=== PATIENT | female | born 1935 | race Caucasian/White ===

== ENCOUNTER 2018-07-03 09:44 | Day surgery (SDC) | payer OTHER ==
--- NOTE | 2018-06-29 11:26 | EKG ---
Test Date: 2018-06-29 Test Time: 11:10:17 Front End Mechanic: KYRIE MEASUREMENT RESULTS: Intervals: Rate: 72 NJ: 150 QRSD: 78 QT: 430 QTc: 470 Amity: P: 68 NJ: 150 QRS: 54 T: 72 INTERPRETIVE STATEMENTS: Normal sinus rhythm Biatrial enlargement Septal infarct, age undetermined Abnormal ECG Compared to ECG 11/12/2016 14:53:43 Myocardial infarct finding now present ST (T wave) deviation no longer present Electronically Signed On 06-29-18 11:25:50 [employer]ODU[employer] CHECKER by Jasson Glass
[2018-06-29 12:23] LABS: Absolute Lymphocytes (CBC) 1.6 K/uL (0.7-4.9); Absolute Monocytes 0.6 K/uL (0.1-1.3); Absolute Neutrophil 4.8 K/uL (1.8-8.0); Basophils % 0.7 % (0-1.3); Eosinophils % 1.2 % (0-4.4); Hematocrit 42.4 % (36.0-45.0); Lymphocytes % 22.3 % (15.3-44.8); MPV 8.9 fL (7.6-11.3); Monocytes % 7.8 % (3.3-12.3)
[2018-06-29 12:26] LABS: Potassium 4.1 mmol/L (3.5-5.1)
--- OUTSIDE RECORDS SUMMARY | 2018-07-03 09:47 | XMS REPORT | Clinical Summary ---
:1935 Author Organization [facility] Address [address] [place] [id number] Care Team Providers Name Role Phone Hussain Aponte MD Primary Care Provider Allergies Active Allergy Reactions Severity Noted Date Comments Codeine 12/25/2015 Medications Medication Sig Dispensed Refills Start Date End Date Status aspirin (ECOTRIN) 81 MG TAKE 1 TABLET BY 0 Active enteric coated tablet MOUTH DAILY calcium citrate-vitamin one by mouth 0 09/27/2014 Active D3 200 mg calcium -250 once daily unit tablet levothyroxine TAKE 1 TABLET BY 0 Active (SYNTHROID) 50 mcg MOUTH DAILY tablet omega-3 fatty acids-fish Take by mouth. 0 Active oil (FISH OIL) 360-1,200 mg capsule Active Problems Problem Noted Date Disorder of breast 12/25/2015 Encounters Date Type Specialty Care Team Description 05/29/2018 Hospital Encounter Radiology Henok, Zo Abnormal mammogram MD Lev 05/29/2018 Hospital Encounter Radiology Henok, Zo Abnormal mammogram MD Lev 05/29/2018 Office Visit Obstetrics and [facility] Well woman exam Gynecology MD Lev (Primary Dx) 04/10/2018 Orders Only Obstetrics and Marion Carrera, Abnormal mammogram Gynecology EP TECHNOLOGIST (Primary Dx) 04/10/2018 Transcribe Orders Access Henok, Zo Mammogram abnormal MD Lev (Primary Dx) 04/10/2018 Telephone Obstetrics and [facility] Gynecology MD Lev after 07/02/2017 Family History Medical History Relation Name Comments Other Father Malignant tumor of lung Relation Name Status Comments Father Mother Social History Tobacco Use Types Packs/Day Years Used Date Never Smoker Smokeless Tobacco: Never Used Alcohol Use Drinks/Week oz/Week Comments No Sex Assigned at Date Recorded Not on file Job Start Date Occupation Industry Not on file Not on file Not on file Travel History Travel Start Travel End No recent travel history available. Last Filed Vital Signs Vital Sign Reading Time Taken Blood Pressure 171/80 05/29/2018 11:46 AM WINE PASTEURIZER Pulse 86 05/29/2018 11:46 AM WINE PASTEURIZER Temperature - - Respiratory Rate - - Oxygen Saturation - - Inhaled Oxygen Concentration - - Weight 54.3 kg (119 lb 9.6 oz) 05/29/2018 11:45 AM WINE PASTEURIZER Height 149.9 cm (4' 11") 05/29/2018 11:45 AM WINE PASTEURIZER Body Mass Index 24.16 05/29/2018 11:45 AM WINE PASTEURIZER Plan of Treatment Health Maintenance Due Date Last Done Comments SHINGLES VACCINES (1 of 2) 02/05/1986 PNEUMOCOCCAL-13 02/05/2001 INFLUENZA VACCINE 01/11/2018 PNEUMOCOCCAL POLYSACCHARIDE VACCINE AGE 65 AND OVER Completed 02/13/2015 Procedures Procedure Name Priority Date/Time Associated Comments Diagnosis US BREAST COMPLETE Routine 05/29/2018 2:58 Abnormal mammogram Results for this RIGHT PM WINE PASTEURIZER procedure are in the results section. MAMMO BREAST Routine 05/29/2018 2:06 Abnormal mammogram Results for this DIAGNOSTIC PM WINE PASTEURIZER procedure are in TOMOSYNTHESIS the results BILATERAL section. after 07/02/2017 Results US Breast Complete Right (05/29/2018 2:58 PM WINE PASTEURIZER) Narrative Performed At PROCEDURE: MAMMO BREAST DIAGNOSTIC TOMOSYNTHESIS BILATERAL, US BREAST [facility] COMPLETE RIGHT05/29/2018 1:26 PM This patient's mammogram was interpreted with the assistance of computer-aided detection (CAD). CLINICAL HISTORY:83-year-old female with previous history of dense breast tissue and abnormal mammogram. COMPARISON:04/04/2017, 01/22/2016, 12/19/2014, 12/17/2013. BREAST DENSITY:There are scattered areas of fibroglandular density. DIGITAL DIAGNOSTIC MAMMOGRAPHY: There are no dominant masses, suspicious microcalcifications or unexplained architectural distortion to suggest malignancy. An asymmetry located within the superior right breast at posterior depth is not significantly changed dating back to 12/17/2013. BREAST ULTRASOUND: Complete right breast sonogram, to include scanning of all 4 quadrants and the retroareolar/subareolar region, was performed by the technologist with close supervision by the radiologist. Sonographic evaluation of the right breast demonstrates normal glandular tissue within all 4 quadrants and retroareolar position. No suspicious sonographic mass is seen. IMPRESSION: BI-RADS Category 2-Benign Findings. 1.No mammographic evidence for malignancy within either breast. 2.No sonographic evidence for malignancy within the right breast. RECOMMENDATION: Comparison with physical examination and annual mammography. The results of this exam have been sent to the patient. This facility is accredited by [employer] for Mammography. A negative x-ray report should not delay biopsy if a dominant or clinically suspicious mass is present. Not all cancers are identified by x-ray. [id number] Performing Organization Address City/State/Zipcode Phone Number [facility] [address] [place] [address] Mammo Breast Diagnostic Tomosynthesis Bilateral (05/29/2018 2:06 PM WINE PASTEURIZER) Narrative Performed At PROCEDURE: MAMMO BREAST DIAGNOSTIC TOMOSYNTHESIS BILATERAL, US BREAST [facility] COMPLETE RIGHT05/29/2018 1:26 PM This patient's mammogram was interpreted with the assistance of computer-aided detection (CAD). CLINICAL HISTORY:83-year-old female with previous history of dense breast tissue and abnormal mammogram. COMPARISON:04/04/2017, 01/22/2016, 12/19/2014, 12/17/2013. BREAST DENSITY:There are scattered areas of fibroglandular density. DIGITAL DIAGNOSTIC MAMMOGRAPHY: There are no dominant masses, suspicious microcalcifications or unexplained architectural distortion to suggest malignancy. An asymmetry located within the superior right breast at posterior depth is not significantly changed dating back to 12/17/2013. BREAST ULTRASOUND: Complete right breast sonogram, to include scanning of all 4 quadrants and the retroareolar/subareolar region, was performed by the technologist with close supervision by the radiologist. Sonographic evaluation of the right breast demonstrates normal glandular tissue within all 4 quadrants and retroareolar position. No suspicious sonographic mass is seen. IMPRESSION: BI-RADS Category 2-Benign Findings. 1.No mammographic evidence for malignancy within either breast. 2.No sonographic evidence for malignancy within the right breast. RECOMMENDATION: Comparison with physical examination and annual mammography. The results of this exam have been sent to the patient. This facility is accredited by [employer] for Mammography. A negative x-ray report should not delay biopsy if a dominant or clinically suspicious mass is present. Not all cancers are identified by x-ray. [id number] Performing Organization Address City/State/Zipcode Phone Number [facility] [address] [place] [address] after 07/02/2017 Insurance Payer Benefit Plan / Group Subscriber ID Type Phone Address MEDICARE MEDICARE PART A AND B xxxxxxxxxxx Medicare [place], [place] [employer] xxxxxxxxxxxxxxx Commercial (Home) [place] [address] Advance Directives Patient has advance care planning documents on file. For more information, please contact:Vikash Phillips[address] [place] [address]
--- OUTSIDE RECORDS SUMMARY | 2018-07-03 09:47 | XMS REPORT | Continuity of Care Document ---
:1935 Author Organization Interface Problems Problem Status Onset Classification Date Comments Source Date Reported PHYSICAL Active 08/24/19 Condition 09/27/2014 EXAMINATION 14 Medical Group OTHER Active 08/24/19 Condition 09/27/2014 POSTSURGICAL 14 Medical STATUS OTHER Group ESSENTIAL AND Active 08/24/19 Condition 09/27/2014 OTHER SPECIFIED 14 Medical FORMS OF TREMOR Group Tremor<sup>2</sup Active 08/24/19 Problem 12/31/2017 Data MH > 14 migrated Medical from [employer] on 11/09/14. HYPOTHYROIDISM Active Condition 09/27/2014 Medical Group Allergic rhinitis Resolved Problem 12/31/2017 Medical Group Hypothyroidism<rock Active Problem 12/31/2017 Data MH p>1</sup> migrated Medical from [employer] on 11/09/14. Medications Medication Details Route Status Patient Ordering Order Source Instructions Provider Date Levothyroxine See Active Sodium 0.05 MG Instructions 018 Medical Oral Tablet , # 90 tab, Group [Synthroid] Refill(s) 2, TAKE 1 TABLET BY MOUTH EVERY DAY., TIFF, Pharmacy: [facility] [id number] Levothyroxine See Active Sodium 0.05 MG Instructions 018 Medical Oral Tablet , # 90 tab, Group [Synthroid] TAKE 1 TABLET BY MOUTH EVERY DAY., TIFF, Pharmacy: [facility] [id number] CITRACAL/VITAMIN one by mouth Active D TABS once daily 015 Medical Group EVISTA 60 MG TAKE 1 No Longer MH TABS TABLET BY Active 013 Medical MOUTH DAILY Group EVISTA 60 MG TAKE 1 No Longer MH TABS TABLET BY Active 013 Medical MOUTH DAILY Group SYNTHROID 50 MCG TAKE 1 Active MH TABS TABLET BY Medical MOUTH DAILY Group ASPIRIN LOW DOSE TAKE 1 Active MH 81 MG TABS TABLET BY Medical MOUTH DAILY Group SYNTHROID 50 MCG TAKE 1 Active MH TABS TABLET BY Medical MOUTH DAILY Group Allergies, Adverse Reactions, Alerts Substance Category Reaction Severity Reaction Status Date Comments Source type Reported CODEINE Drug CODEINE allergy Medical Group codeine<sup Assertion Drug Active Data MH >1</sup> allergy migrated Medical from [employer] on 08/13/15. Originally documented as CODEINE. Immunizations Immunization Date Site Status Last Updated Comments Source Given pneumococcal completed [facility] Medical 13-valent 7 Group vaccine influenza virus completed [facility] Medical vaccine, 7 Group inactivated influenza virus Left completed [facility] [place] Medical vaccine, 5 Deltoid Group inactivated pneumococcal Right completed [facility] [place] Medical 23-valent 5 Deltoid Group vaccine influenza completed Medical immunization 8 Group (Flu Vax) has been administered influenza virus completed [facility] Medical vaccine, 8 Comment: Group inactivated<sup> historical. 1</sup> Migrated from OBS ; Data migrated from [employer] on 12/25/2014. influenza completed Medical immunization 6 Group (Flu Vax) has been administered pneumococcal completed Medical immunization 6 Group administered pneumococcal completed [email or web address] 23-valent 6 Comment: Group vaccine<sup>2</s pneumovax. up> Migrated from OBS ; Data migrated from [employer] on 12/25/2014. Results Order Name Results Value Reference Date Interpretation Comments Source Range Chemistry CHOLESTEROL 271 - 199 mg/dl 2014 Medical Group Chemistry TRIGLYCERIDE 65 - 149 mg/dl 2014 Medical Group Chemistry HDL 96 >=61 mg/dl 2014 Medical Group Chemistry LDL 162 - 99 mg/dl 2014 Medical Group Chemistry SODIUM 141 135 - 145 MEQ/L 2014 Medical mmol/L Group Chemistry POTASSIUM 4.2 3.5 - 5.1 MEQ/L 2014 Medical mmol/L Group Chemistry CREATININE 0.9 0.5 - 1.4 mg/dL 2014 Medical Group Chemistry BUN 20 7 - 22 mg/dL 2014 Medical Group Chemistry BUN/CREAT 22 6 - 25 2014 Medical Group Chemistry ALBUMIN 4.3 3.5 - 5.0 g/dL 2014 Medical Group Chemistry CALCIUM 9.5 8.5 - 10.5 mg/dL 2014 Medical Group Chemistry SGPT (ALT) 32 U/L 0 - 65 2014 Medical Group Chemistry SGOT (AST) 27 U/L 0 - 37 2014 Medical Group Chemistry ALK PHOS 100 U/L 39 - 136 2014 Medical Group Chemistry TSH 4.080 0.360 - uIU/mL 3.740 2014 Medical Group Hematology HGB 14.5 12.0 - 16.0 g/dL 2014 Medical Group Hematology HCT 44.3 % 36.0 - 48.0 2014 Medical Group Hematology PLATELETS 287 133 - 450 K/CMM 2014 Medical /mm3 Group Chemistry CHOLESTEROL 288 - 199 mg/dl 2013 Medical Group Chemistry TRIGLYCERIDE 80 - 149 mg/dl 2013 Medical Group Chemistry HDL 104 >=61 mg/dl 2013 Medical Group Chemistry LDL 168 - 99 mg/dl 2013 Medical Group Chemistry SODIUM 141 135 - 145 MEQ/L 2013 Medical mmol/L Group Chemistry POTASSIUM 4.4 3.5 - 5.1 MEQ/L 2013 Medical mmol/L Group Chemistry CREATININE 0.7 0.5 - 1.4 mg/dL 2013 Medical Group Chemistry BUN 19 7 - 22 mg/dL 2013 Medical Group Chemistry BUN/CREAT 27 6 - 25 2013 Medical Group Chemistry ALBUMIN 4.4 3.5 - 5.0 g/dL 2013 Medical Group Chemistry CALCIUM 10.2 8.5 - 10.5 mg/dL 2013 Medical Group Chemistry SGPT (ALT) 37 U/L 0 - 65 2013 Medical Group Chemistry SGOT (AST) 26 U/L 0 - 37 2013 Medical Group Chemistry ALK PHOS 110 U/L 39 - 136 2013 Medical Group Chemistry TSH 3.360 0.360 - uIU/mL 3.740 2013 Medical Group Chemistry CHOLESTEROL 288 - 199 mg/dl 2013 Medical Group Chemistry TRIGLYCERIDE 80 - 149 mg/dl 2013 Medical Group Chemistry HDL 104 >=61 mg/dl 2013 Medical Group Chemistry LDL 168 - 99 mg/dl 2013 Medical Group Chemistry SODIUM 141 135 - 145 MEQ/L 2013 Medical mmol/L Group Chemistry POTASSIUM 4.4 3.5 - 5.1 MEQ/L 2013 Medical mmol/L Group Chemistry CREATININE 0.7 0.5 - 1.4 mg/dL 2013 Medical Group Chemistry BUN 19 7 - 22 mg/dL 2013 Medical Group Chemistry BUN/CREAT 27 6 - 25 2013 Medical Group Chemistry ALBUMIN 4.4 3.5 - 5.0 g/dL 2013 Medical Group Chemistry CALCIUM 10.2 8.5 - 10.5 mg/dL 2013 Medical Group Chemistry SGPT (ALT) 37 U/L 0 - 65 2013 Medical Group Chemistry SGOT (AST) 26 U/L 0 - 37 2013 Medical Group Chemistry ALK PHOS 110 U/L 39 - 136 2013 Medical Group Chemistry TSH 3.360 0.360 - uIU/mL 3.740 2013 Medical Group Chemistry CHOLESTEROL 288 - 199 mg/dl 2013 Medical Group Chemistry TRIGLYCERIDE 80 - 149 mg/dl 2013 Medical Group Chemistry HDL 104 >=61 mg/dl 2013 Medical Group Hematology HGB 14.2 12.0 - 16.0 g/dL 2013 Medical Group Hematology HCT 44.2 % 36.0 - 48.0 2013 Medical Group Hematology PLATELETS 318 133 - 450 K/CMM 2013 Medical /mm3 Group Hematology HGB 14.2 12.0 - 16.0 g/dL 2013 Medical Group Hematology HCT 44.2 % 36.0 - 48.0 2013 Medical Group Hematology PLATELETS 318 133 - 450 K/CMM 2013 Medical /mm3 Group Vital Signs Vital Sign Value Date Comments Source Height 62.5 09/27/2014 Medical Group Weight 120 09/27/2014 Medical Group Temperature Oral (F) 97.6 F 09/27/2014 Medical Group Heart Rate 73 09/27/2014 Medical Group Systolic (mm Hg) 167 09/27/2014 Medical Group Diastolic (mm Hg) 77 09/27/2014 Medical Group Weight 121.5 08/23/2013 Medical Group Height 62.5 08/23/2013 Medical Group Temperature Oral (F) 96.5 F 08/23/2013 Medical Group Heart Rate 78 08/23/2013 Medical Group Systolic (mm Hg) 132 08/23/2013 Medical Group Diastolic (mm Hg) 68 08/23/2013 Medical Group Encounters Location Location Encounter Encounter Reason Attending ADM DC Status Source Details Type Number For Provider Date Date Visit [facility] Lab Report [id number] José 08/23 08/23 [place] [address] [facility] Medical Medical MD Group Group [facility] Office [id number] José 09/27 09/27 [facility] Visit [address] [facility] Medical Medical MD Group Group [facility] Outpatient [id number] JOSÉ 02/13 [facility] [place] Outpatient [id number] JOSÉ 10/15 [facility] [place] Outpatient [id number] JOSÉ 03/30 [facility] [place] Outpatient [id number] JOSÉ 03/31 [facility] Phone [id number] 09/29 10/01 Primary Message /2017 [facility] Phone [phone] 12/27 12/29 Primary Message /2017 Medical Care Group [facility] Outpatient [id number] REANNA 04/13 [facility] [place] Procedures Procedure Code Date Perfomer Comments Source colonoscopy [id number] 01/23/2013 Normal Medical Group
--- OUTSIDE RECORDS SUMMARY | 2018-07-03 09:47 | XMS REPORT | Continuity of Care Document ---
:1935 Author Organization [facility] Care Team Providers Name Role Phone MD Aponte Luis Unavailable Unavailable Insurance Providers Payer name Policy type / Policy ID Covered alliance party ID Policy Cast[place]age type [place] [employer] (MEDICARE SUPPLEMENT) [place] [employer] (MEDICARE SUPPLEMENT) [employer] (MEDICARE SUPPLEMENT) Encounters Encounter Performer Location Date Lab Report Hussain Aponte MD [facility] Aug 23, 2013 Allergies, Adverse Reactions, Alerts Type Substance Reaction Status Drug allergy CODEINE Active Problems Problem Effective Dates Problem Status HYPOTHYROIDISM Active PHYSICAL EXAMINATION Aug 23, 2013 Active OTHER POSTSURGICAL STATUS OTHER Aug 23, 2013 Active ESSENTIAL AND OTHER SPECIFIED FORMS OF TREMOR Aug 23, 2013 Active Procedures Date Description Comments Aug 23, 2013 smoking status never smoker Jan 23, 2013 colonoscopy Normal Medications Medication Instructions Start Date Status SYNTHROID 50 MCG TABS TAKE 1 TABLET BY MOUTH DAILY Active ASPIRIN LOW DOSE 81 MG TABS TAKE 1 TABLET BY MOUTH DAILY Active EVISTA 60 MG TABS TAKE 1 TABLET BY MOUTH DAILY Inactive Immunizations Vaccine Date Status influenza immunization (Flu Vax) has been administered Mar 22, 2006 completed pneumococcal immunization administered Mar 22, 2006 completed influenza immunization (Flu Vax) has been administered Apr 02, 2008 completed Vital Signs Date Description Test Result Aug 23, 2013 weight E&M - 3141-9 WEIGHT 121.5 lb Aug 23, 2013 height E&M - 8302-2 HEIGHT 62.5 in Aug 23, 2013 temperature E&M TEMPERATURE 96.5 deg f Aug 23, 2013 pulse rate E&M - 8867-4 PULSE RATE 78 /min Aug 23, 2013 blood pressure, systolic - 8480-6 BP SYSTOLIC 132 mm Hg Aug 23, 2013 blood pressure, diastolic - 8462-4 BP DIASTOLIC 68 mm Hg Results Date Description Test Name Value Reference Interpretation Status Aug 23, hemoglobin, blood HGB 14.2 g/dL 12.0-16.0 2013Aug 23, hematocrit, blood HCT 44.2 % 36.0-48.0 2013Aug 23, platelet count PLATELETS 318 K/CMM 666-023 1675 /mm3 Aug 23, hemoglobin, blood HGB 14.2 g/dL 12.0-16.0 2013Aug 23, hematocrit, blood HCT 44.2 % 36.0-48.0 2013Aug 23, platelet count PLATELETS 318 K/CMM 087-139 0634 /mm3 Aug 23, cholesterol, serum CHOLESTEROL 288 mg/dl <=199 High 2013Aug 23, triglyceride, serum, TRIGLYCERIDE 80 mg/dl <=149 2013 fasting Aug 23, HDL cholesterol, HDL 104 mg/dl >=61 2013Aug 23, LDL cholesterol, LDL 168 mg/dl <=99 High 2013Aug 23, sodium, serum SODIUM 141 MEQ/L 243-625 8766 mmol/L Aug 23, potassium, serum POTASSIUM 4.4 MEQ/L 3.5-5.1 2013 mmol/L Aug 23, creatinine, serum CREATININE 0.7 mg/dL 0.5-1.4 2013Aug 23, urea nitrogen, blood BUN 19 mg/dL 7-22 2013Aug 23, urea BUN/CREAT 27 null 6-25 High 2013 nitrogen/creatinine ratio, serum Aug 23, albumin, serum ALBUMIN 4.4 g/dL 3.5-5.0 2013Aug 23, calcium, serum CALCIUM 10.2 8.5-10.5 2013 mg/dL Aug 23, alanine SGPT (ALT) 37 U/L 0-65 2013 aminotransferase (SGPT), serum Aug 23, aspartate SGOT (AST) 26 U/L 0-37 2013 aminotransferase (SGOT), serum Aug 23, alkaline ALK PHOS 110 U/L 39-136 2013 phosphatase, serum Aug 23, thyroid stimulating TSH 3.360 0.360-3.740 2014 hormone, serum uIU/mL Aug 23, cholesterol, serum CHOLESTEROL 288 mg/dl <=199 High 2013Aug 23, triglyceride, serum, TRIGLYCERIDE 80 mg/dl <=149 2013 fasting Aug 23, HDL cholesterol, HDL 104 mg/dl >=61 2013Aug 23, LDL cholesterol, LDL 168 mg/dl <=99 High 2013 serum Aug 23, sodium, serum SODIUM 141 MEQ/L 495-129 6403 mmol/L Aug 23, potassium, serum POTASSIUM 4.4 MEQ/L 3.5-5.1 2013 mmol/L Aug 23, creatinine, serum CREATININE 0.7 mg/dL 0.5-1.4 2013Aug 23, urea nitrogen, blood BUN 19 mg/dL 7-22 2013Aug 23, urea BUN/CREAT 27 null 6-25 High 2014 nitrogen/creatinine ratio, serum Aug 23, albumin, serum ALBUMIN 4.4 g/dL 3.5-5.0 2013Aug 23, calcium, serum CALCIUM 10.2 8.5-10.5 2013 mg/dL Aug 23, alanine SGPT (ALT) 37 U/L 0-65 2013 aminotransferase (SGPT), serum Aug 23, aspartate SGOT (AST) 26 U/L 0-37 2013 aminotransferase (SGOT), serum Aug 23, alkaline ALK PHOS 110 U/L 39-136 2013 phosphatase, serum Aug 23, thyroid stimulating TSH 3.360 0.360-3.740 2014 hormone, serum uIU/mL
--- OUTSIDE RECORDS SUMMARY | 2018-07-03 09:48 | XMS REPORT | Summary of Care ---
:1935 Author Organization [facility] Address [address] [place] [address]- Encounter HQ Encntr_alias(FIN) [id number] Date(s): 12/27/17 - 12/28/17 [facility] [address] [place] [phone] Vital Signs No data available for this section Problem List Condition Effective Dates Status Health Status Informant Allergic rhinitis(Confirmed) Resolved Hypothyroidism1 Active Tremor2 08/23/13 Active 1Data migrated from [employer] on 11/09/14.2Data migrated from [employer] on 11/09/14. Allergies, Adverse Reactions, Alerts Substance Reaction Severity Status codeine1 Active 1Data migrated from [employer] on 08/13/15. Originally documented as CODEINE. Medications Synthroid 50 mcg (0.05 mg) oral tablet See Instructions, # 90 tab, Refill(s) 2, TAKE 1 TABLET BY MOUTH EVERY DAY.TIFF , Pharmacy: [facility] Start Date: 12/27/17 Status: Ordered Results No data available for this section Immunizations Given and Recorded Vaccine Date Status Refusal Reason pneumococcal 13-valent vaccine 03/03/17 Recorded pneumococcal 13-valent vaccine 03/03/17 Recorded influenza virus vaccine, inactivated 03/03/17 Recorded influenza virus vaccine, inactivated 03/03/17 Recorded influenza virus vaccine, inactivated 02/13/15 Given influenza virus vaccine, inactivated1 04/02/08 Given pneumococcal 23-valent vaccine 02/13/15 Given pneumococcal 23-valent vaccine2 03/22/06 Given 1Result Comment: historical. Migrated from OBS ; Data migrated from [employer] on 12/25/2014.2Result Comment: pneumovax. Migrated from OBS ; Data migrated from [employer] on 12/25/2014. Procedures No data available for this section Social History Social History Type Response Substance Abuse Use: None. Employment/School Work/School description: Retired. Alcohol Never Smoking Status Never smoker; Exposure to Tobacco Smoke None; Cigarette Smoking Last 365 Days No; Reg Smoking Cessation Counseling No entered on: 03/31/17 Assessment and Plan No data available for this section
--- OUTSIDE RECORDS SUMMARY | 2018-07-03 09:48 | XMS REPORT | Continuity of Care Document ---
:1935 Author Organization [facility] Care Team Providers Name Role Phone MD Aponte Luis Unavailable Unavailable Insurance Providers Payer name Policy type / Policy ID Covered alliance party ID Policy Castillo Coverage type [place] [employer] [place] (MEDICARE SUPPLEMENT) [place]: [employer] [place] (MEDICARE SUPPLEMENT) [employer] (MEDICARE SUPPLEMENT) Encounters Encounter Performer Location Date Office Visit Hussain Aponte MD [facility] Sep 27, 2014 Allergies, Adverse Reactions, Alerts Type Substance Reaction Status Drug allergy CODEINE Active Problems Problem Effective Dates Problem Status HYPOTHYROIDISM Active PHYSICAL EXAMINATION Aug 23, 2013 Active OTHER POSTSURGICAL STATUS OTHER Aug 23, 2013 Active ESSENTIAL AND OTHER SPECIFIED FORMS OF TREMOR Aug 23, 2013 Active Procedures Date Description Comments Aug 23, 2013 smoking status never smoker Jan 23, 2013 colonoscopy Normal Sep 27, 2014 smoking status Never smoker Medications Medication Instructions Start Date Status SYNTHROID 50 MCG TABS TAKE 1 TABLET BY MOUTH DAILY Active ASPIRIN LOW DOSE 81 MG TABS TAKE 1 TABLET BY MOUTH DAILY Active EVISTA 60 MG TABS TAKE 1 TABLET BY MOUTH DAILY Inactive CITRACAL/VITAMIN D TABS one by mouth once daily Sep 27, 2014 Active Immunizations Vaccine Date Status influenza immunization (Flu [...] - 8462-4 BP DIASTOLIC 68 mm Hg Sep 27, 2014 height E&M - 8302-2 HEIGHT 62.5 in Sep 27, 2014 weight E&M - 3141-9 WEIGHT 120 lb Sep 27, 2014 temperature E&M TEMPERATURE 97.6 deg f Sep 27, 2014 pulse rate E&M - 8867-4 PULSE RATE 73 /min Sep 27, 2014 blood pressure, systolic - 8480-6 BP SYSTOLIC 167 mm Hg Sep 27, 2014 blood pressure, diastolic - 8462-4 BP DIASTOLIC 77 mm Hg Results Date Description Test Name Value Reference Interpretation Status Aug 23, hemoglobin, blood HGB 14.2 g/dL 12.0-16.0 2013Aug 23, hematocrit, blood HCT 44.2 % 36.0-48.0 2013Aug 23, platelet count PLATELETS 318 K/CMM [phone] /mm3 Aug 23, hemoglobin, blood HGB 14.2 g/dL 12.0-16.0 2013Aug 23, hematocrit, blood HCT 44.2 % 36.0-48.0 2013Aug 23, platelet count PLATELETS 318 K/CMM 392-573 9993 /mm3 Sep 27, hemoglobin, blood HGB 14.5 g/dL 12.0-16.0 2014Sep 27, hematocrit, blood HCT 44.3 % 36.0-48.0 2014Sep 27, platelet count PLATELETS 287 K/CMM 624-921 9614 /mm3 Aug 23, cholesterol, serum CHOLESTEROL 288 mg/dl <=199 High 2013Aug 23, triglyceride, serum, TRIGLYCERIDE 80 mg/dl <=149 2013 fasting Aug 23, HDL cholesterol, HDL 104 mg/dl >=61 2013 serum Aug 23, LDL cholesterol, LDL 168 mg/dl <=99 High 2013 serum Aug 23, sodium, serum SODIUM 141 MEQ/L [phone] mmol/L Aug 23, potassium, serum POTASSIUM 4.4 [...] Aug 23, thyroid stimulating TSH 3.360 0.360-3.740 2013 hormone, serum uIU/mL Aug 23, cholesterol, serum CHOLESTEROL 288 mg/dl <=199 High 2013Aug 23, triglyceride, serum, TRIGLYCERIDE 80 mg/dl <=149 2013 fasting Aug 23, HDL cholesterol, HDL 104 mg/dl >=61 2013 serum Aug 23, LDL cholesterol, LDL 168 mg/dl <=99 High 2013 serum Aug 23, sodium, serum SODIUM 141 MEQ/L 172-098 4238 mmol/L Aug 23, potassium, serum POTASSIUM 4.4 [...] Aug 23, thyroid stimulating TSH 3.360 0.360-3.740 2013 hormone, serum uIU/mL Sep 27, cholesterol, serum CHOLESTEROL 271 mg/dl <=199 High 2014Sep 27, triglyceride, serum, TRIGLYCERIDE 65 mg/dl <=149 2014 fasting Sep 27, HDL cholesterol, HDL 96 mg/dl >=61 2014 serum Sep 27, LDL cholesterol, LDL 162 mg/dl <=99 High 2014 serum Sep 27, sodium, serum SODIUM 141 MEQ/L [phone] mmol/L Sep 27, potassium, serum POTASSIUM 4.2 MEQ/L 3.5-5.1 2014 mmol/L Sep 27, creatinine, serum CREATININE 0.9 mg/dL 0.5-1.4 2014Sep 27, urea nitrogen, blood BUN 20 mg/dL 7-2014Sep 27, urea BUN/CREAT 22 null 6-25 2014 nitrogen/creatinine ratio, serum Sep 27, albumin, serum ALBUMIN 4.3 g/dL 3.5-5.0 2014Sep 27, calcium, serum CALCIUM 9.5 mg/dL 8.5-10.5 2014Sep 27, alanine SGPT (ALT) 32 U/L 0-65 2014 aminotransferase (SGPT), serum Sep 27, aspartate SGOT (AST) 27 U/L 0-37 2014 aminotransferase (SGOT), serum Sep 27, alkaline ALK PHOS 100 U/L 39-136 2014 phosphatase, serum Sep 27, thyroid stimulating TSH 4.080 0.360-3.740 High 2015 hormone, serum uIU/mL
--- OUTSIDE RECORDS SUMMARY | 2018-07-03 09:48 | XMS REPORT | Summary of Care ---
:1935 Author Organization [facility] Primary Care [facility] Address [address] [place] [address]- Encounter HQ Encntr_alias(FIN) [id number] Date(s): 09/29/17 - 09/30/17 [facility] Primary Care [facility] [address] [place] [address] [phone] Vital Signs No data available for this [...] oral tablet See Instructions, # 90 tab, TAKE 1 TABLET BY MOUTH EVERY DAY.TIFF, Pharmacy: [facility] Start Date: 09/29/17 Status: Ordered Results No data available for [...] from OBS ; Data migrated from [employer] on 12/25/2014.2Result Comment: pneumovax. Migrated from OBS ; Data migrated from [employer] on 12/25/2014. Procedures No data available for [...]
--- OUTSIDE RECORDS SUMMARY | 2018-07-03 09:48 | XMS REPORT | Continuity of Care Document ---
:1935 Author Organization [facility] Care Team Providers Name Role Phone MD Aponte Luis Unavailable Unavailable Insurance Providers Payer name Policy type / Policy ID Covered democrat ID Policy Castillo Coverage type [place] [employer] [place] (MEDICARE SUPPLEMENT) MEDIC[place]: [employer] [place] (MEDICARE SUPPLEMENT) [employer] [place] (MEDICARE SUPPLEMENT) Encounters Encounter Performer Location Date Office Visit Hussain Aponte MD [facility] Sep 27, 2014 Allergies, Adverse Reactions, Alerts [...] 2013Aug 23, platelet count PLATELETS 318 K/CMM [phone] /mm3 Aug 23, hemoglobin, blood HGB 14.2 g/dL 12.0-16.0 2013Aug 23, hematocrit, blood HCT 44.2 % 36.0-48.0 2013Aug 23, platelet count PLATELETS 318 K/CMM 253-156 3380 /mm3 Sep 27, hemoglobin, blood HGB 14.5 g/dL 12.0-16.0 2014Sep 27, hematocrit, blood HCT 44.3 % 36.0-48.0 2014Sep 27, platelet count PLATELETS 287 K/CMM 520-496 6707 /mm3 Aug 23, cholesterol, serum CHOLESTEROL 288 mg/dl <=199 High 2013Aug 23, triglyceride, serum, TRIGLYCERIDE 80 mg/dl <=149 2013 fasting Aug 23, HDL cholesterol, HDL 104 mg/dl >=61 2013 serum Aug 23, LDL cholesterol, LDL 168 mg/dl <=99 High 2013 serum Aug 23, sodium, serum SODIUM 141 MEQ/L [phone] mmol/L Aug 23, potassium, serum POTASSIUM 4.4 [...] Aug 23, sodium, serum SODIUM 141 MEQ/L 419-538 8739 mmol/L Aug 23, potassium, serum POTASSIUM 4.4 [...] Sep 27, sodium, serum SODIUM 141 MEQ/L [phone] mmol/L Sep 27, potassium, serum POTASSIUM 4.2 [...]
[2018-07-03] MEDS ORDERED: NS 0.9% VIAL 10 ML ONE (11:08)
[2018-07-03] MEDS ORDERED: LIDOCAINE 2% MPF 5 ML VIAL ONE ×3 (11:20→13:13)
[2018-07-03] MEDS: PHENYLEPHRINE 10% OPTH 5ML ONE ×3 (11:21→11:41)
[2018-07-03] MEDS: CYCLOPENTOLATE 1% OPTH 2 ML ONE ×3 (11:21→11:41)
[2018-07-03] MEDS ORDERED: BUPIVACAINE 0.25% PF 10 ML VIAL ONE (11:21)
[2018-07-03] MEDS ORDERED: TETRACAINE HCL 0.5% 2ML OPTH ONE (11:21)
[2018-07-03] MEDS ORDERED: NA CHLORIDE 0.9% 500 ML ONE (11:21)
[2018-07-03] MEDS ORDERED: PROPOFOL 200 MG/20 ML VIAL IV ONE (12:20)
[2018-07-03] MEDS: BALANCED SALT IRRIG PLAIN 500 ML BTL IRR ONE ×2 (12:41→12:59)
[2018-07-03] MEDS: EPINEPHRINE/PF 1 MG/ML AMP ONE ×2 (12:42→12:59)
[2018-07-03] MEDS: DUOVISC 1 KIT OPTH ONE ×2 (12:43→12:59)
[2018-07-03] MEDS: MOXIFLOXACIN HCL 10 DROPS/ML **OR USE OPTH ONE ×2 (12:43→13:05)
--- NOTE | 2018-07-03 13:41 | P.BOP ---
Preoperative diagnosis: Nuclear sclerotic cataract and regular astigmatism OD Postoperative diagnosis: Same Primary procedure: Phacoemulsification with Toric IOL OD Estimated blood loss: None Anesthesia: Local (Subtenon's infusion with anesthesia for cataract surgery) Complications: None Implants: [id number] +23.5 @ 173 Transferred to: Other (Day surgery) Condition: Good
--- NOTE | 2018-07-03 22:19 | OP ---
Surgeon: Erica Jason MD Anesthesiologist: Leslie Aiken CRNA and Fabrizio Bermudez MD. Preoperative Diagnosis: Nuclear sclerotic cataract and regular astigmatism, right eye. Operation Performed: Phacoemulsification with toric intraocular lens implant, right eye. Anesthesia: Per cataract surgery. Complications: None. Description Of Procedure: In day surgery, the patient was prepped with Betadine and draped. A conju nctival incision was made in the inferior nasal quadrant with Dante scissors. A sub-Tenon block c onsisting of a 1:1 mixture of 2% Xylocaine and 0.25% bupivacaine was placed through the conjunctival incision with a blunt cannula. A Honan balloon was placed over the eye and the patient was transferr ed to the operating room. In the operating room the patient was prepped and draped in the usual sterile fashion for ophthalmic surgery. A lid speculum was placed in the right eye. Two paracentesis sites were made superiorly an d inferiorly in the limbal cornea. Viscoat was placed in the anterior chamber and a crescent blade w as used to make a corneal groove and tunnel, and a keratome was used to enter the anterior chamber. Provisc was placed in the anterior chamber and a 360 degree capsulotomy was performed with a cystitom e. The lens was hydrodissected with BSS and rotated freely. The lens was removed with a stop and ch op technique. 10.05 phaco CDE was used to remove the lens. Residual cortex was removed with the irr igation and aspiration. Provisc was placed in the capsular bag. A [id number] +23.5 at 173 degrees lens was placed in the capsular bag without complications. Irrigation and aspiration were used to remove residual viscoelastic. The paracentesis sites were hydrated with BSS. The wound and paracentesis si maria fernanda were inspected and found to be watertight. Vigamox 0.07 cc was placed intracamerally at the end of the procedure. The eye was irrigated with balanced salt solution. The eye was patched with a sof t cotton patch and Long metal shield. The patient was returned to day surgery in good condition. Comments: Discharge Instructions: Ms. Smith is discharged to home in good condition and is to follow up [facility] Dr. Jason in the morning. AUTUMN/JUAN Voice ID: [id number] Report ID: [id number]
== END 2018-07-03 14:13 | disposition home or self-care (01) ==
LOC: OR 09:44
PROVIDERS: ATTEND Ophthalmology Retina Specialist
PROC: 08RJ3JZ Replacement of Right Lens with Synthetic Substitute, Percutaneous Approach (ICD-10-PCS; principal; 2018-07-03 11:15)
DX: H25.11 Age-related nuclear cataract, right eye (principal); H52.221 Regular astigmatism, right eye; H40.20X0 Unspecified primary angle-closure glaucoma, stage unspecified; E07.9 Disorder of thyroid, unspecified; Z88.6 Allergy status to analgesic agent
CPT/HCPCS: 36415; 66984; 80048; 85025; 93005; J0171; J2704; V2787

== ENCOUNTER 2018-10-09 07:52 | Day surgery (SDC) | payer OTHER ==
--- OUTSIDE RECORDS SUMMARY | 2018-10-09 07:56 | XMS REPORT | Clinical Summary ---
:1935 Author Organization [facility] Address [address] [place] [address] Care Team Providers Name Role Phone Hussain [...] Obstetrics and Marion Carrera, Abnormal mammogram Gynecology BULB TESTER (Primary Dx) 04/10/2018 Transcribe Orders Access Henok, Zo Mammogram abnormal MD Lev (Primary Dx) 04/10/2018 Telephone Obstetrics and Zo Whiting Gynecology MD Lev after 10/08/2017 Family History Medical History Relation Name Comments [...] Taken Blood Pressure 171/80 05/29/2018 11:46 AM INDUSTRIAL RELATIONS MANAGER Pulse 86 05/29/2018 11:46 AM INDUSTRIAL RELATIONS MANAGER Temperature - - Respiratory Rate - - Oxygen Saturation - - Inhaled Oxygen Concentration - - Weight 54.3 kg (119 lb 9.6 oz) 05/29/2018 11:45 AM INDUSTRIAL RELATIONS MANAGER Height 149.9 cm (4' 11") 05/29/2018 11:45 AM INDUSTRIAL RELATIONS MANAGER Body Mass Index 24.16 05/29/2018 11:45 AM INDUSTRIAL RELATIONS MANAGER Plan of Treatment Health Maintenance Due Date Last Done Comments SHINGLES VACCINES (#1) 02/05/1986 65+ PNEUMOCOCCAL VACCINE (2 of 2 - PPSV23) 02/05/2001 02/13/2015 INFLUENZA VACCINE 01/11/2019 PNEUMOCOCCAL POLYSACCHARIDE VACCINE AGE 65 AND OVER Completed 02/13/2015 Procedures Procedure Name Priority Date/Time Associated Comments Diagnosis US BREAST COMPLETE Routine 05/29/2018 2:58 Abnormal mammogram Results for this RIGHT PM INDUSTRIAL RELATIONS MANAGER procedure are in the results section. MAMMO BREAST Routine 05/29/2018 2:06 Abnormal mammogram Results for this DIAGNOSTIC PM INDUSTRIAL RELATIONS MANAGER procedure are in TOMOSYNTHESIS the results BILATERAL section. after 10/08/2017 Results US Breast Complete Right (05/29/2018 2:58 PM INDUSTRIAL RELATIONS MANAGER) Narrative Performed At PROCEDURE: MAMMO BREAST DIAGNOSTIC [...] patient. This facility is accredited by [employer] for Mammography. A negative x-ray report should not delay biopsy if a dominant or clinically suspicious mass is present. Not all cancers are identified by x-ray. [id number] Performing Organization Address City/State/Zipcode Phone Number [facility] [address] [place] [address] Mammo Breast Diagnostic Tomosynthesis Bilateral (05/29/2018 2:06 PM INDUSTRIAL RELATIONS MANAGER) Narrative Performed At PROCEDURE: MAMMO BREAST DIAGNOSTIC [...] patient. This facility is accredited by [employer] for Mammography. A negative x-ray report should not delay biopsy if a dominant or clinically suspicious mass is present. Not all cancers are identified by x-ray. [id number] Performing Organization Address City/State/Zipcode Phone Number [facility] [address] [place] [address] after 10/08/2017 Insurance Payer Benefit Plan / Group Subscriber ID Type Phone Address MEDICARE MEDICARE PART A AND B xxxxxxxxxxx Medicare [place], [place] [employer] xxxxxxxxxxxxxxx Commercial Advance Directives Patient has advance care planning documents on file. For more information, please contact:Vikash Phillips[address] [place] [address]
--- OUTSIDE RECORDS SUMMARY | 2018-10-09 07:57 | XMS REPORT | Continuity of Care Document ---
:1936 Author Organization Interface Problems Problem Status Onset Classification Date Comments Source Date Reported PHYSICAL Active 08/24/19 Condition 09/27/2014 EXAMINATION 14 Medical Group OTHER Active 08/24/19 Condition 09/27/2014 POSTSURGICAL 14 Medical STATUS OTHER Group ESSENTIAL AND Active 08/24/19 Condition 09/27/2014 OTHER SPECIFIED 14 Medical FORMS OF TREMOR Group Tremor<sup>2</sup Active 08/24/19 Problem 07/17/2018 Data MH > 14 migrated Medical from [employer] on 11/09/14. HYPOTHYROIDISM Active Condition 09/27/2014 Medical Group Allergic rhinitis Resolved Problem 07/17/2018 Medical Group Hypothyroidism<rock Active Problem 07/17/2018 Data p>1</sup> migrated Medical from [employer] on 11/09/14. Medications Medication Details Route Status Patient Ordering Order Source Instructions Provider Date Levothyroxine See No Longer Sodium 0.05 MG Instructions Active 018 Medical Oral Tablet , # 90 tab, Group [Synthroid] Refill(s) 2, TAKE 1 TABLET BY MOUTH EVERY DAY., 04/13/18 10:47:29 CDT, TIFF, Pharmacy: [facility] [id number] Levothyroxine See Active Sodium 0.05 MG Instructions 018 Medical Oral Tablet , # 90 tab, Group [Synthroid] TAKE 1 TABLET BY MOUTH EVERY DAY., TIFF, Pharmacy: [facility] [id number] CITRACAL/VITAMIN one by mouth Active MH D TABS once daily 015 Medical Group [...] Data MH >1</sup> allergy migrated Medical from [employer] on 08/13/15. Originally documented as CODEINE. Immunizations Immunization Date Site Status Last Updated Comments Source Given influenza virus completed Yajaira Location Medical vaccine, 8 History: Group inactivated<sup> [facility] 1</sup> pneumococcal completed [facility] Medical 13-valent 7 Group vaccine influenza virus completed [facility] Medical vaccine, 7 Group inactivated influenza virus Left completed [facility] Medical vaccine, 5 Deltoid Group inactivated pneumococcal Right completed [facility] Medical 23-valent 5 Deltoid Group vaccine influenza completed Medical immunization 8 Group (Flu Vax) has been administered influenza virus completed [facility] Medical vaccine, 8 Comment: Group inactivated<sup> historical. 2</sup> Migrated from OBS ; Data migrated from [employer] on 12/25/2014. influenza virus completed [facility] Medical vaccine, 8 Comment: Group inactivated<sup> historical. 1</sup> Migrated from OBS ; Data migrated from [employer] on 12/25/2014. influenza completed Medical immunization 6 Group (Flu Vax) has been administered pneumococcal completed Medical immunization 6 Group administered pneumococcal completed [facility] Medical 23-valent 6 Comment: Group vaccine<sup>3</s pneumovax. up> Migrated from OBS ; Data migrated from [employer] on 12/25/2014. pneumococcal completed [facility] Medical 23-valent 6 Comment: Group vaccine<sup>2</s pneumovax. up> Migrated from OBS ; Data migrated from [employer] on 12/25/2014. Results Order Name Results Value Reference Date Interpretation Comments Source Range Chemistry CHOLESTEROL 271 - 199 09/27/ mg/dl 2014 Medical [facility] Chemistry TRIGLYCERIDE 65 - 149 09/27/ mg/dl 2014 [facility] Chemistry HDL 96 >=61 09/27/ mg/dl 2014 [facility] Chemistry LDL 162 - 99 mg/dl 2014 [...] /mm3 Group Chemistry CHOLESTEROL 288 - 199 // mg/dl 2013 Medical Group Chemistry TRIGLYCERIDE 80 - 149 // mg/dl 2013 Medical Group Chemistry HDL 104 >=61 08/23/ mg/dl 2013 Medical Group Chemistry CHOLESTEROL 288 - 199 // mg/dl 2013 Medical Group Chemistry TRIGLYCERIDE 80 - 149 // mg/dl 2013 Medical Group Chemistry HDL 104 >=61 08/23/ mg/dl 2013 Medical Group Chemistry LDL 168 - 99 08/23/ mg/dl 2013 Medical Group Chemistry SODIUM 141 [...] 0.360 - uIU/mL 3.740 2013 Medical Group Hematology HGB 14.2 12.0 - 16.0 g/dL 2013 Medical Group Hematology HCT 44.2 % 36.0 - 48.0 2013 Medical Group Hematology PLATELETS 318 133 - 450 K/[facility] 2013 Medical /mm3 Group Hematology HGB 14.2 [...] Type Number For Provider Date Date Visit [facility] Lab Report [id number] José 08/23 08/23 [facility] [address] [facility], Medical Medical MD Group Group [facility] Office [id number] José 09/27 09/27 [facility] Visit [address] [place] [address], Medical Medical MD Group Group [facility] [id number] JOSÉ 02/13 [facility] [id number] JOSÉ 10/15 [facility] [id number] JOSÉ 03/30 [facility] [id number] JOSÉ03/31 [facility] Phone [phone] 09/29 10/01 Primary Message /2017 Medical Care Group [facility] Phone [phone] 12/27 12/29 Primary Message /2017 Medical Care Group [facility] [id number] REANNA 04/13 [facility] Procedures Procedure Code Date Perfomer Comments Source Mammogram [id number] 05/13/2017 Medical Group Bone density scan [id number] 06/13/2015 Medical Group colonoscopy [id number] 01/23/2013 Normal Medical [facility] Colonoscopy<sup>1< [id number] Had one in the Medical /sup> last 10 years. Group
--- OUTSIDE RECORDS SUMMARY | 2018-10-09 07:58 | XMS REPORT | Continuity of Care Document ---
:1936 Author Organization [facility] Care Team Providers Name Role Phone MD Aponte Luis Unavailable Unavailable Insurance Providers Payer name Policy type / Policy ID Covered democrat ID Policy Castillo Coverage type [place] [employer] [place] (MEDICARE SUPPLE[place]) [place]: [employer] [place] (MEDICARE SUPPLEMENT) [employer] (MEDICARE SUPPLEMENT) Encounters Encounter Performer Location Date Office Visit Hussain Aponte MD [facility] Sep 27, 2014 Allergies, Adverse Reactions, Alerts [...] 2013Aug 23, platelet count PLATELETS 318 K/CMM [phone] /mm3 Aug 23, hemoglobin, blood HGB 14.2 g/dL 12.0-16.0 2013Aug 23, hematocrit, blood HCT 44.2 % 36.0-48.0 2013Aug 23, platelet count PLATELETS 318 K/CMM 556-199 7186 /mm3 Sep 27, hemoglobin, blood HGB 14.5 g/dL 12.0-16.0 2014Sep 27, hematocrit, blood HCT 44.3 % 36.0-48.0 2014Sep 27, platelet count PLATELETS 287 K/CMM 440-821 4678 /mm3 Aug 23, cholesterol, serum CHOLESTEROL 288 mg/dl <=199 High 2013Aug 23, triglyceride, serum, TRIGLYCERIDE 80 mg/dl <=149 2013 fasting Aug 23, HDL cholesterol, HDL 104 mg/dl >=61 2013 serum Aug 23, LDL cholesterol, LDL 168 mg/dl <=99 High 2013 serum Aug 23, sodium, serum SODIUM 141 MEQ/L 205-467 7032 mmol/L Aug 23, potassium, serum POTASSIUM 4.4 [...] Aug 23, sodium, serum SODIUM 141 MEQ/L [phone] mmol/L Aug 23, potassium, serum POTASSIUM 4.4 [...] Sep 27, sodium, serum SODIUM 141 MEQ/L 296-043 0817 mmol/L Sep 27, potassium, serum POTASSIUM 4.2 [...]
--- OUTSIDE RECORDS SUMMARY | 2018-10-09 07:58 | XMS REPORT | Continuity of Care Document ---
:1936 Author Organization [facility] Care Team Providers Name Role Phone MD Aponte Luis Unavailable Unavailable Insurance Providers Payer name Policy type / Policy ID Covered constitution party ID Policy Castillo Coverage type [place] [employer] [place] (MEDICARE SUPPLE[place]) [place]: [employer] [place] (MEDICARE SUPPLEMENT) [employer] [place] (MEDICARE SUPPLEMENT) Encounters Encounter Performer Location Date Lab Report Hussain Aponte MD [facility] Aug 23, 2013 Allergies, Adverse Reactions, Alerts [...] 2013Aug 23, platelet count PLATELETS 318 K/CMM [phone] /mm3 Aug 23, hemoglobin, blood HGB 14.2 g/dL 12.0-16.0 2013Aug 23, hematocrit, blood HCT 44.2 % 36.0-48.0 2013Aug 23, platelet count PLATELETS 318 K/CMM [phone] /mm3 Aug 23, cholesterol, serum CHOLESTEROL 288 mg/dl <=199 High 2013Aug 23, triglyceride, serum, TRIGLYCERIDE 80 mg/dl <=149 2013 fasting Aug 23, HDL cholesterol, HDL 104 mg/dl >=61 2013Aug 23, LDL cholesterol, LDL 168 mg/dl <=99 High 2013Aug 23, sodium, serum SODIUM 141 MEQ/L [phone] mmol/L Aug 23, potassium, serum POTASSIUM 4.4 [...] Aug 23, sodium, serum SODIUM 141 MEQ/L [phone] mmol/L Aug 23, potassium, serum POTASSIUM 4.4 [...]
--- OUTSIDE RECORDS SUMMARY | 2018-10-09 07:58 | XMS REPORT | Summary of Care ---
:1936 Author Organization [facility] Primary Care [facility] Address [address] [place] [address]- Encounter HQ Encntr_alias(FIN) [id number] Date(s): 12/27/17 - 12/28/17 [facility] Primary Care [facility] [address] [place] [phone] Vital Signs No data available for this section Problem List Condition Effective Dates Status Health Status Informant Allergic rhinitis(Confirmed) Resolved Hypothyroidism1 Active Tremor2 08/23/13 Active 1Data migrated from [employer] on 11/09/14.2Data migrated from [employer] on 11/09/14. Allergies, Adverse Reactions, Alerts Substance Reaction Severity Status codeine1 Active 1Data migrated from [employer] on 08/13/15. Originally documented as CODEINE. Medications Synthroid 50 mcg (0.05 mg) oral tablet See Instructions, # 90 tab, Refill(s) 2, TAKE 1 TABLET BY MOUTH EVERY DAY., 06/30 10:47:29 TIFF BAIRES, Pharmacy: [facility] Start Date: 12/27/17 Stop Date: 04/13/18 Status: Completed Results No data available for this section Immunizations Given and Recorded Vaccine Date Status Refusal Reason influenza virus vaccine, inactivated1 02/22/18 Recorded influenza virus vaccine, inactivated 03/03/17 Recorded influenza virus vaccine, inactivated 03/03/17 Recorded influenza virus vaccine, inactivated 02/13/15 Given influenza virus vaccine, inactivated2 04/02/08 Given pneumococcal 13-valent vaccine 03/03/17 Recorded pneumococcal 13-valent vaccine 03/03/17 Recorded pneumococcal 23-valent vaccine 02/13/15 Given pneumococcal 23-valent vaccine3 03/22/06 Given 1Location History: [email or web address] Comment: historical. Migrated from [employer] ; Data migrated from [employer] on 12/25/2014.3Result Comment: pneumovax. Migrated from [employer] ; Data migrated from [employer] on 12/25/2014. Procedures Procedure Date Related Diagnosis Body Site Status Mammogram 05/13/17 Completed Bone density scan 06/13/15 Completed Colonoscopy1 Completed 1Had one in the last 10 years. Social History Social History Type Response Substance Abuse Use: None. Employment/School Work/School description: Retired. Alcohol Never Smoking Status Never smoker; Exposure to Tobacco Smoke None; Cigarette Smoking Last 365 Days No; Reg Smoking Cessation Counseling No entered on: 04/13/18 Assessment and Plan No data available for this section
--- OUTSIDE RECORDS SUMMARY | 2018-10-09 07:58 | XMS REPORT | Continuity of Care Document ---
:1935 Author Organization [facility] Care Team Providers Name Role Phone MD Aponte Luis Unavailable Unavailable Insurance Providers Payer name Policy type / Policy ID Covered green party ID Policy Castillo Coverage type [place] [employer] (MEDICARE SUPPLEMENT) [place] [employer] (MEDICARE SUPPLEMENT) [employer] (MEDICARE [place]PPLEMENT) Encounters Encounter Performer Location Date Office Visit Hussain Aponte MD [facility] Sep 27, 2014 Allergies, Adverse Reactions, Alerts [...] 2013Aug 23, platelet count PLATELETS 318 K/CMM [phone] /mm3 Aug 23, hemoglobin, blood HGB 14.2 g/dL 12.0-16.0 2013Aug 23, hematocrit, blood HCT 44.2 % 36.0-48.0 2013Aug 23, platelet count PLATELETS 318 K/CMM [phone] /mm3 Sep 27, hemoglobin, blood HGB 14.5 g/dL 12.0-16.0 2014Sep 27, hematocrit, blood HCT 44.3 % 36.0-48.0 2014Sep 27, platelet count PLATELETS 287 K/CMM [phone] /mm3 Aug 23, cholesterol, serum CHOLESTEROL 288 mg/dl <=199 High 2013Aug 23, triglyceride, serum, TRIGLYCERIDE 80 mg/dl <=149 2013 fasting Aug 23, HDL cholesterol, HDL 104 mg/dl >=61 2013 serum Aug 23, LDL cholesterol, LDL 168 mg/dl <=99 High 2013 serum Aug 23, sodium, serum SODIUM 141 MEQ/L [phone] mmol/L Aug 23, potassium, serum POTASSIUM 4.4 [...] Aug 23, sodium, serum SODIUM 141 MEQ/L [phone] mmol/L Aug 23, potassium, serum POTASSIUM 4.4 [...] Sep 27, sodium, serum SODIUM 141 MEQ/L [phone] mmol/L Sep 27, potassium, serum POTASSIUM 4.2 [...]
[2018-10-09] MEDS ORDERED: DUOVISC 1 KIT OPTH ONE (08:20)
[2018-10-09] MEDS ORDERED: NS 0.9% VIAL 10 ML ONE (08:20)
[2018-10-09] MEDS ORDERED: EPINEPHRINE/PF 1 MG/ML AMP ONE (08:20)
[2018-10-09] MEDS ORDERED: BALANCED SALT IRRIG PLAIN 500 ML BTL IRR ONE (08:20)
[2018-10-09] MEDS ORDERED: MOXIFLOXACIN HCL 10 DROPS/ML **OR USE OPTH ONE (08:21)
[2018-10-09] MEDS ORDERED: CYCLOPENTOLATE 1% OPTH 2 ML ONE (08:25)
[2018-10-09] MEDS ORDERED: NA CHLORIDE 0.9% 500 ML ONE (08:25)
[2018-10-09] MEDS ORDERED: PHENYLEPHRINE 10% OPTH 5ML ONE (08:26)
[2018-10-09] MEDS ORDERED: CYCLOPENTOLATE 1% OPTH 2 ML OPTH ONE ×2 (08:35→08:40)
[2018-10-09] MEDS ORDERED: PHENYLEPHRINE 10% OPTH 5ML OPTH ONE ×2 (08:35→08:40)
[2018-10-09] MEDS: TETRACAINE HCL 0.5% 4ML OPTH ONE ×2 (09:18→09:41)
[2018-10-09] MEDS: BUPIVACAINE 0.25% PF 10 ML VIAL ONE ×2 (09:19→09:42)
[2018-10-09] MEDS: LIDOCAINE 2% MPF 5 ML VIAL ONE ×2 (09:19→09:42)
[2018-10-09] MEDS ORDERED: LIDOCAINE 1% MPF 5 ML VIAL ONE (09:35)
[2018-10-09] MEDS ORDERED: PROPOFOL 200 MG/20 ML VIAL IV ONE (09:35)
--- NOTE | 2018-10-09 10:30 | P.BOP ---
Preoperative diagnosis: Nuclear sclerotic cataract and regular astigmatism OS Postoperative diagnosis: Same Primary procedure: Phacoemulsification with Toric IOL OS Estimated blood loss: None Anesthesia: Local (Subtenon's infusion with anesthesia for cataract surgery) Complications: None Implants: [id number] +24.0 @ 168 Transferred to: Other (Day surgery) Condition: Good
--- NOTE | 2018-10-09 21:43 | OP ---
Surgeon: Erica Jason MD Anesthesiologist: Leslie Erwin CRNA; Oniel Kraus CRNA; Vickie Mckeon CRNA; and Fabrizio Bermudez MD. Preoperative Diagnosis: Nuclear sclerotic cataract and regular astigmatism, left eye. Operation Performed: Phacoemulsification with toric intraocular lens implant, left eye. Anesthesia: Per cataract surgery. Complications: None. Description Of Procedure: In day surgery, the patient was prepped with Betadine and draped. A conju nctival incision was made in the inferior nasal quadrant with Dante scissors. A sub-Tenon block c onsisting of a 1:1 mixture of 2% Xylocaine and 0.25% bupivacaine was placed through the conjunctival incision with a blunt cannula. A Honan balloon was placed over the eye and the patient was transferr ed to the operating room. In the operating room the patient was prepped and draped in the usual sterile fashion for ophthalmic surgery. A lid speculum was placed in the left eye. Two paracentesis sites were made superiorly and inferiorly in the limbal cornea. Viscoat was placed in the anterior chamber and a crescent blade wa s used to make a corneal groove and tunnel, and a keratome was used to enter the anterior chamber. P rovisc was placed in the anterior chamber and a 360 degree capsulotomy was performed with a cystitome . The lens was hydrodissected with BSS and rotated freely. The lens was removed with a stop and cho p technique. 11.97 phaco CDE was used to remove the lens. Residual cortex was removed with the irri gation and aspiration. Provisc was placed in the capsular bag. A FJK123 + 24.0 at 168 degrees lens was placed in the capsular bag without complications. Irrigation and aspiration was used to remove r esidual viscoelastic. The paracentesis sites were hydrated with BSS. The wound and paracentesis sit es were inspected and found to be watertight. Vigamox 0.07 cc was placed intracamerally at the end o f the procedure. The eye was irrigated with balanced salt solution. The eye was patched with a soft cotton patch and Long metal shield. The patient was returned to day surgery in good condition. Discharge Instructions: Ms. Smith was discharged to home in good condition and is to follow up w shelton Jason in the morning. AUTUMN/JUAN Voice ID: [id number] Report ID: [id number]
== END 2018-10-09 10:58 | disposition home or self-care (01) ==
LOC: OR 07:52
PROVIDERS: ATTEND Ophthalmology Retina Specialist
PROC: 08RK3JZ Replacement of Left Lens with Synthetic Substitute, Percutaneous Approach (ICD-10-PCS; principal; 2018-10-09 09:50)
DX: H25.12 Age-related nuclear cataract, left eye (principal); H52.222 Regular astigmatism, left eye; E07.9 Disorder of thyroid, unspecified; Z79.82 Long term (current) use of aspirin; Z79.899 Other long term (current) drug therapy
CPT/HCPCS: 66984; J2704; J0171; V2630; V2787

== ENCOUNTER 2023-01-05 07:30 | Day surgery (SDC) | payer OTHER ==
[2023-01-04 14:55] LABS: Absolute Lymphocytes (CBC) 2.1 K/uL (0.7-4.9); Hematocrit 41.7 % (36.0-45.0); Lymphocytes % 22.8 % (15.3-44.8); MCV 91.1 fL (80-100); MPV 8.3 fL (7.6-11.3); RBC Red Blood Cell Count 4.57 M/uL (3.86-4.86)
[2023-01-04 15:08] LABS: Potassium 4.2 mEq/L (3.5-5.1)
--- NOTE | 2023-01-04 15:15 | RAD REPORT ---
EXAM DESCRIPTION: Trice Garber And Juan (2 Views)01/04/2023 2:55 pm CLINICAL HISTORY: Preop. Hypertension COMPARISON: 2021 FINDINGS: The lungs appear clear of acute infiltrate. The heart is normal size IMPRESSION: No acute abnormalities displayed
[2023-01-05] MEDS ORDERED: Ringers Lactate 1,000 ML IV ONE (07:56)
[2023-01-05] MEDS ORDERED: CEFAZOLIN SODIUM 1 GM/VIAL ONE (08:06)
[2023-01-05] MEDS ORDERED: propofoL 200 MG/20 ML VIAL IV ONE (09:21)
[2023-01-05] MEDS ORDERED: LIDOCAINE 2% MPF 5 ML VIAL ONE (09:21)
[2023-01-05] MEDS ORDERED: FENTANYL CITR 100 MCG/2 ML ONE (09:21)
[2023-01-05] MEDS ORDERED: ONDANSETRON 4 MG/2 ML VIAL ONE (09:36)
[2023-01-05] MEDS ORDERED: dexAMETHasone 4 MG/ML VIAL ONE (09:37)
[2023-01-05] MEDS ORDERED: dexAMETHasone 10 MG/ML VIAL ONE (09:38)
--- NOTE | 2023-01-05 10:12 | P.BOP ---
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
[2023-01-05 10:48] VITALS: O2SAT 100
[2023-01-05 12:48] VITALS: BP 138/69; TEMP 97
--- NOTE | 2023-01-05 14:29 | DS ---
Date of Discharge: 01/05/2023 Diagnosis: Ulcerated forearm mass. Procedure: Wide excision with frozen section of a right forearm mass. Disposition: Home. Activity: As tolerated. No heavy lifting. Plan: Follow up in my office in 1 week. Call for appointment at [phone]. Keep area dry for 48 ramona rs, then may shower. Then apply triple antibiotics and bandages. DELONTE Voice ID: [id number] Report ID: [id number]
--- NOTE | 2023-01-05 14:32 | OP ---
Date of Procedure: 01/05/2023 Surgeon: Isael Pop MD Preoperative Diagnosis: Ulcerated forearm mass. Postoperative Diagnosis: Ulcerated forearm mass. Procedure: Wide excision of ulcerated right forearm mass 2.5 x 2.5 cm. Estimated Blood Loss: Less than 10 mL. Specimen: Mass. 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 A permanent section needs to be done to final d etermination. Margins free as per Dr. Moran, pathologist. Anesthesia: General plus local. Complications: None. Indication: This is the case of an 87-year-old patient, who comes with a raised pedunculated friable ulcerated, weeping mass in the right forearm. She does not recall any trauma to that region. It may s been growing for the last several months and she wants that excised. The possibility of cancer is high, so wide excision with frozen section was recommended with benefits, alternatives, and risks inc luding, but not limited to infection, bleeding, damage to adjacent structures, anesthesia complicatio n, recurrence, SC, and even . She also understands this may not relieve any symptoms. She migh t need more than one surgical intervention. She understood, signed a consent. The area of concern w as marked by me and the patient in the holding room. Procedure In Detail: The patient was brought to the operating room, placed in supine position. Anes thesia was done without complication. Right forearm was prepped and draped in the usual sterile fash ion. Local anesthesia was applied after time-out. A wedge incision was made in the skin with gross negative margins all the way down to subcutaneous tissue. 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 To close this, we have a complete hemostasis of that area and closed this with a 3-0 chromic in the subcutaneous ti ssue and the skin in a running 3-0 nylon. The patient tolerated the procedure well. Sponge count, i nstrument counts correct. The patient was sent to recovery in stable condition. SUKH/JUAN Voice ID: [id number] Report ID: [id number]
--- NOTE | 2023-01-05 19:18 | EKG ---
Test Date: 2023-01-04 Test Time: 14:34:39 Edge Molder: RAISSA MEASUREMENT RESULTS: Intervals: Rate: 73 NE: 164 QRSD: 76 QT: 408 QTc: 449 [place]: P: 69 NE: 164 QRS: 52 T: 54 INTERPRETIVE STATEMENTS: Normal sinus rhythm Right atrial enlargement Borderline ECG Compared to ECG 06/29/2018 11:10:17 Myocardial infarct finding no longer present Electronically Signed On 01-05-23 19:16:40 CDT by Tavon Swift
== END 2023-01-05 11:40 | disposition home or self-care (01) ==
LOC: OR 07:30
PROVIDERS: ATTEND Surgery
PROC: 0JBG0ZZ Excision of Right Lower Arm Subcutaneous Tissue and Fascia, Open Approach (ICD-10-PCS; principal; 2023-01-05 08:30)
DX: C44.622 Squamous cell carcinoma of skin of right upper limb, including shoulder (principal)
CPT/HCPCS: 93005; 85025; 80048; 36415; 88331; 88332; 88305; 71046; 11603; J2704; J1100 ×2; J2001; J3010; J2405; J7120; J0690

== ENCOUNTER → 2023-07-03 | Emergency (ER) | payer OTHER ==
--- NOTE | 2023-07-03 12:59 | RAD REPORT ---
EXAM DESCRIPTION: RAD - Shoulder Right 2 View - 07/03/2023 12:52 pm CLINICAL HISTORY: PAIN COMPARISON: No comparisons FINDINGS/IMPRESSION: No acute fracture. No malalignment. Moderate right glenohumeral joint degenerat paulette changes. Mild right AC joint degenerative changes.
--- NOTE | 2023-07-03 13:04 | ER ---
Nurse's Notes [facility] Name: Anya Smith Age: 88 yrs Sex: Female : 1935 Arrival Date: 07/03/2023 Time: 11:27 Bed 18 Private MD: Diagnosis: Other sprain of right shoulder joint Presentation: 07/03 11:51 Chief complaint: Right facial bruising and right shoulder pain after mechanical fall hb from standing yesterday. Coronavirus screen: At this time, the client does not indicate any symptoms associated with coronavirus-19. Ebola Screen: No symptoms or risks identified at this time. Initial Sepsis Screen: Does the patient meet any 2 criteria? No. Patient's initial sepsis screen is negative. Does the patient have a suspected source of infection? No. Patient's initial sepsis screen is negative. Risk Assessment: Do you want to hurt yourself or someone else? Patient reports no desire to harm self or others. Onset of symptoms was July 02, 2023. 11:51 Method Of Arrival: Ambulatory hb 11:51 Acuity: NGOC 4 hb Historical: - Allergies: 11:53 Codeine; hb - Home Meds: 11:53 Synthroid Oral [Active]; amlodipine oral [Active]; Metoprolol Tartrate Oral [Active]; hb Simvastatin Oral [Active]; - PMHx: 11:53 Hypothyroidism; hb 11:56 Hypertension; High Cholsterol; hb - Immunization history:: Client reports receiving the 2nd dose of the Covid vaccine, Flu vaccine is up to date. - Social history:: Smoking status: Patient denies any tobacco usage or history of. Screenin:07 [facility] ED Fall Risk Assessment (Adult) History of falling in the last 3 months, me1 including since admission Yes- single mechanical fall (1 pt) Confusion or Disorientation No (0 pts) Intoxicated or Sedated No (0 pts) Impaired Gait No (0 pts) Mobility Assist Device Used No (0 pt) Altered Elimination No (0 pt) Score/Fall Risk Level 0 - 2 = Low Risk Provided non-skid footwear, Hourly rounding (assess needs \T\ fall precautionary measures) done, Used ambulatory aids as needed (educated on \T\ assisted with). Abuse screen: Denies threats or abuse. Nutritional screening: No deficits noted. Tuberculosis screening: No symptoms or risk factors identified. Primary Survey: 13:34 NO uncontrolled hemorrhage observed. A: The client is awake and alert. The airway is me1 patent. The client responds to verbal stimuli. Airway: patent, Patient intubated prior to arrival No supplemental oxygen in use on arrival. Oral cavity: clear, Trachea midline. Assessment: 12:07 General: Appears uncomfortable, well groomed, well developed, well nourished, Behavior me1 is calm, cooperative, appropriate for age, Reports Right facial bruising and right shoulder pain after mechanical fall from standing yesterday. Pain: Denies pain. Neuro: Level of Consciousness is awake, alert, obeys commands, Oriented to person, place, time, situation, Appropriate for age. Cardiovascular: Capillary refill < 3 seconds Patient's skin is warm and dry. Respiratory: Airway is patent Respiratory effort is even, unlabored, Respiratory pattern is regular, symmetrical. Derm: Bruising that is on face and right jaw. Musculoskeletal: Musculoskeletal: Reports pain in face and right jaw and right shoulder since falling yesterday. . pain to right shoulder with movement. Vital Signs: 11:51 BP 163 / 88; Pulse 79; Resp 16; Temp 97.9(TE); Pulse Ox 95% on R/A; Weight 53.52 kg; hb Height 5 ft. 3 in. ; Pain 3/10; 12:00 BP 137 / 72; Pulse 74; Resp 16; Pulse Ox 97% ; me1 13:00 BP 135 / 73; Pulse 70; Resp 18; Pulse Ox 97% on R/A; me1 11:51 Body Mass Index 20.90 (53.52 kg, 160.02 cm) hb 11:51 Pain Scale: Adult hb ED Course: 11:31 Patient arrived in ED. im 11:32 Suma Alegre PA-C is PHCP. sb4 11:32 Jose Meredith MD is Attending Physician. sb4 11:50 Nevaeh Bernard, JOANNA is Primary Nurse. me1 11:53 Triage completed. hb 11:56 Arm band placed on. hb 12:07 Patient has correct armband on for positive identification. Bed in low position. Call me1 light in reach. Side rails up X 1. Provided Education on: POC. Verbalized understanding. . 12:07 No provider procedures requiring assistance completed. Patient did not have IV access me1 during this emergency room visit. 12:54 Shoulder Right (2 View) XRAY In Process Unspecified. EDMS 13:04 Phill Marques MD is Referral Physician. sb4 Administered Medications: No medications were administered Medication: 12:07 VIS not applicable for this client. me1 Outcome: 13:04 Discharge ordered by . sb4 13:35 Discharged to home ambulatory, me1 13:35 Condition: stable 13:35 Discharge instructions given to patient, Instructed on discharge instructions, follow up and referral plans. Demonstrated understanding of instructions, follow-up care, use of sling 13:36 Patient left the ED. me1 Signatures: Dispatcher [employer] EDMS Ruby Sin RN RN Suma Haynes, PA-C PA-C sb4 Jesi Rosales Michelle, RN RN me1 Corrections: (The following items were deleted from the chart) 12:07 11:51 Chief complaint: Right facial bruising and right shoulder pain after mechanical me1 fall from standing yesterday. hb
--- NOTE | 2023-07-03 13:05 | EDPHYS ---
Physician Documentation [facility] Name: Anya Smith Age: 88 yrs Sex: Female : 1935 Arrival Date: 07/03/2023 Time: 11:27 Bed 18 Private MD: ED Physician Jose Meredith HPI: 07/03 11:58 This 88 yrs old Female presents to ER via Ambulatory with complaints of shoulder pain. sb4 11:58 The patient or guardian complains of decreased range of motion, an injury, pain, that sb4 is acute, tenderness. right shoulder. Context: The problem was sustained at home, resulted from a fall, while walking, The patient experiences decreased range of motion, when attempts to raise arm, The patient reports no obvious deformity. Onset: The symptoms/episode began/occurred yesterday. Modifying factors: the symptoms are alleviated by remaining still, The symptoms are aggravated by lifting weight, movement. Associated signs and symptoms: The patient has no apparent associated signs or symptoms. Treatment prior to arrival includes: no previous treatment. The patient has not experienced similar symptoms in the past. The patient has not recently seen a physician. Historical: - Allergies: 11:53 Codeine; hb - Home Meds: 11:53 Synthroid Oral [Active]; amlodipine oral [Active]; Metoprolol Tartrate Oral [Active]; hb Simvastatin Oral [Active]; - PMHx: 11:53 Hypothyroidism; hb 11:56 Hypertension; High Cholsterol; hb - Immunization history:: Client reports receiving the 2nd dose of the Covid vaccine, Flu vaccine is up to date. - Social history:: Smoking status: Patient denies any tobacco usage or history of. ROS: 11:58 Constitutional: Negative for fever, chills, and weight loss, sb4 11:58 MS/extremity: Positive for injury or acute deformity, decreased range of motion, pain, of the right shoulder, 11:58 Skin: Positive for ecchymosis, of the right jaw, 11:58 All other systems are negative, Exam: 11:58 Constitutional: This is a well developed, well nourished patient who is awake, alert, sb4 and in no acute distress. Eyes: Extra-ocular motions intact. Periorbital areas with no swelling, redness, or edema. ENT: Mucous membranes moist. Cardiovascular: Regular rate and rhythm with a normal S1 and S2. Respiratory: Lungs have equal breath sounds bilaterally, clear to auscultation and percussion. No rales, rhonchi or wheezes noted. No increased work of breathing, no retractions or nasal flaring. Abdomen/GI: Soft, non-tender, no distension. Skin: Warm, dry with normal turgor. Normal color with no rashes, no lesions, and no evidence of cellulitis. Neuro: Awake and alert, GCS 15, oriented to person, place, time, and situation. Motor strength 5/5 in all extremities. Sensory grossly intact. 11:58 Head/face: Noted is ecchymosis, that is moderate, of the right jaw, 11:58 Musculoskeletal/extremity: Extremities: noted in the right shoulder: decreased ROM, pain, tenderness, ROM: limited active range of motion due to pain, limited passive range of motion due to pain, Circulation is intact in all extremities. Pulses: are normal with no appreciated deficits, Perfusion: the extremity is normally perfused throughout, Sensation intact. Vital Signs: 11:51 BP 163 / 88; Pulse 79; Resp 16; Temp 97.9(TE); Pulse Ox 95% on R/A; Weight 53.52 kg; hb Height 5 ft. 3 in. ; Pain 3/10; 12:00 BP 137 / 72; Pulse 74; Resp 16; Pulse Ox 97% ; me1 13:00 BP 135 / 73; Pulse 70; Resp 18; Pulse Ox 97% on R/A; me1 11:51 Body Mass Index 20.90 (53.52 kg, 160.02 cm) hb 11:51 Pain Scale: Adult hb MDM: 11:37 Patient medically screened. sb4 11:58 Differential diagnosis: fracture, dislocation, sprain, strain, contusion. sb4 13:03 Data reviewed: vital signs, nurses notes, radiologic studies, and as a result, I will sb4 discharge patient. Counseling: I had a detailed discussion with the patient and/or guardian regarding the historical points, exam findings, and any diagnostic results supporting the discharge/admit diagnosis, radiology results, the need for outpatient follow up, a orthopedic surgeon, if pain persists. 07/03 11:55 Order name: Shoulder Right (2 View) XRAY; Complete Time: 13:03 sb4 07/03 13:03 Order name: Shoulder Immobilizer; Complete Time: 13:22 sb4 Administered Medications: No medications were administered Disposition: 17:00 Co-signature as Attending Physician, Jose Meredith MD I reviewed the patient's care rn provided by the Advanced Practice Provider and agree with the diagnosis and treatment plan. Disposition Summary: 07/03/23 13:04 Discharge Ordered Notes: Location: Home sb4 Problem: new sb4 Symptoms: are unchanged sb4 Condition: Stable sb4 Diagnosis - Other sprain of right shoulder joint sb4 Followup: sb4 - With: Phill Marques MD - When: As needed - Reason: Further diagnostic work-up, Recheck today's complaints, Re-evaluation by your physician Discharge Instructions: - Discharge Summary Sheet sb4 - How to Use a Shoulder Immobilizer sb4 - Shoulder Sprain sb4 Forms: - Medication Reconciliation Form sb4 - Thank You Letter sb4 - Antibiotic Education sb4 - Prescription Opioid Use sb4 - Patient Portal Instructions sb4 - Leadership Thank You Letter sb4 Signatures: Dispatcher [employer] EDJose Rush MD MD rn Baxter, Heather, RN RN hb Brown, Sophia, PAIkerC PAIkerC sb4
[2023-07-03 13:41] VITALS: TEMP 97.9
[2023-07-03 13:57] VITALS: BP 135/73; O2SAT 97
== END ==
LOC: ER 11:27
DX: S43.491A Other sprain of right shoulder joint, initial encounter (principal); W18.30XA Fall on same level, unspecified, initial encounter; Z88.5 Allergy status to narcotic agent
CPT/HCPCS: 99283

== ENCOUNTER 2025-03-27 10:51 | Emergency (ER) | payer OTHER ==
--- NOTE | 2025-03-27 13:05 | RAD REPORT ---
EXAMINATION: XR LEFT HUMERUS HISTORY: PAIN TECHNIQUE: Multiple views of the left humerus were obtained. COMPARISON: None FINDINGS: No acute bone or joint abnormality detected. Mild AC joint degenerative changes. No focal s uspicious osseous lesion. Soft tissues are unremarkable.
--- NOTE | 2025-03-27 13:29 | EDPHYS ---
Physician Documentation [facility] Name: Anya Smith Age: 89 yrs Sex: Female : 1935 Arrival Date: 03/27/2025 Time: 10:51 Bed 10 Private MD: ED Physician Larry Harmon HPI: 03/27 13:57 This 89 yrs old Female presents to ER via Ambulatory with complaints of Fall Injury. kb 13:57 Patient is an 89-year-old female who presents for left shoulder pain after a fall on kb Tuesday, 2 days ago. States she was reaching out for the car door and slipped. Reports pain to left shoulder/upper arm only. States she came in today because her children wanted her to get an x-ray.. Historical: - Allergies: 11:14 Codeine; ll1 - PMHx: 11:14 High Cholsterol; Hypertension; Hypothyroidism; ll1 - Immunization history:: Adult Immunizations up to date. - Infectious Disease History:: Denies. - Immunization history: Last tetanus immunization: - up to date. - Social history:: Smoking status: Patient denies any tobacco usage or history of. ROS: 13:57 Constitutional: As per HPI kb Exam: 13:57 Constitutional: This is a well developed, well nourished patient who is awake, alert, kb and in no acute distress. Head/Face: Normocephalic, atraumatic. ENT: Moist Mucous membranes Respiratory: Respirations even and unlabored. No increased work of breathing. Talking in full sentences Skin: Warm, dry with normal turgor. Normal color. Neuro: Awake and alert, GCS 15, oriented to person, place, time, and situation. 13:57 Musculoskeletal/extremity: Extremities: grossly normal except: noted in the left upper arm: pain, tenderness, ROM: intact in all extremities, Circulation is intact in all extremities. Sensation intact. Vital Signs: 11:12 BP 165 / 66; Pulse 62; Resp 16; Temp 97.6; Pulse Ox 96% ; Weight 52.62 kg; Height 5 ft. ll1 1 in. ; 13:47 BP 158 / 79; Pulse 70; Resp 16; Pulse Ox 96% ; ll1 11:12 Body Mass Index 21.92 (52.62 kg, 154.94 cm) ll1 Fani Coma Score: 13:40 Eye Response: spontaneous(4). Motor Response: obeys commands(6). Verbal Response: ll1 oriented(5). Total: 15. Trauma Score (Adult): 13:40 Eye Response: spontaneous(1); Verbal Response: oriented(1); Motor Response: obeys ll1 commands(2); Systolic BP: > 89 mm Hg(4); Respiratory Rate: 10 to 29 per min(4); Fani Score: 15; Trauma Score: 12 MDM: 11:05 Medical Screening Exam initiated kb 12:44 Differential diagnosis: contusion, fracture, sprain, strain. Data reviewed: vital kb signs, nurses notes. Independent interpretation of the following test(s) in the Emergency Department X-Ray: My interpretation is No acute fracture. Counseling: I had a detailed discussion with the patient and/or guardian regarding the historical points, exam findings, and any diagnostic results supporting the discharge/admit diagnosis, radiology results, the need for outpatient follow up, a family practitioner, to return to the emergency department if symptoms worsen or persist or if there are any questions or concerns that arise at home. 03/27 11:15 Order name: Humerus Left XRAY; Complete Time: 13:14 kb Administered Medications: No medications were administered Disposition: 03/28 07:34 Co-signature as Attending Physician, Larry Harmon MD I agree with the assessment and abbe plan of care. Disposition Summary: 03/27/25 13:28 Discharge Ordered Notes: Location: Home kb Condition: Stable kb Diagnosis - Pain in left shoulder kb Followup: kb - With: Emergency Department - When: As needed - Reason: Worsening of condition Followup: kb - With: Private Physician - When: 2 - 3 days - Reason: Recheck today's complaints, Continuance of care, Re-evaluation by your physician Discharge Instructions: - Discharge Summary Sheet kb - Shoulder Pain, [id number] kb Forms: - Medication Reconciliation Form kb - Antibiotic Education kb - Prescription Opioid Use kb - Patient Portal Instructions kb - Leadership Thank You Letter kb Signatures: Dispatcher [employer] Salome Cabrera, BLADE-C GRADING SUPERVISOR-Larry Wang MD MD cha Lewis, Lynsay, RN RN ll1 YOJANA HEREDIA RN RN dd2 Corrections: (The following items were deleted from the chart) 10/15 11:15 11:15 Humerus Left+RAD.RAD.BRZ ordered. EDMS EDMS
--- NOTE | 2025-03-27 13:29 | ER ---
Nurse's Notes [facility] Name: Anya Smith Age: 89 yrs Sex: Female : 1935 Arrival Date: 03/27/2025 Time: 10:51 Bed 10 Private MD: Diagnosis: Pain in left shoulder Presentation: 03/27 11:12 Chief complaint: Patient states: Tripped on Tuesday coming out of [place]. Hurt L ll1 arm when getting up. No head injury, or LOC. Coronavirus screen: Client denies travel out of the [place] in the last 14 days. At this time, the client does not indicate any symptoms associated with coronavirus-19. Ebola Screen: Patient denies travel to an Ebola-affected area in the 21 days before illness onset. Initial Sepsis Screen: Does the patient meet any 2 criteria? No. Patient's initial sepsis screen is negative. Does the patient have a suspected source of infection? No. Patient's initial sepsis screen is negative. Risk Assessment: Do you want to hurt yourself or someone else? Patient reports no desire to harm self or others. Onset of symptoms was March 25, 2025. 11:12 Method Of Arrival: Ambulatory 1 11:12 Acuity: NGOC 4 ll1 13:42 Care prior to arrival: None. Mechanism of Injury: Fall. Trauma event details: Injury ll1 occurred in the [facility]. Triage Assessment: 11:14 General: Appears in no apparent distress. Behavior is calm, cooperative, appropriate ll1 for age. Pain: Complains of pain in anterior aspect of left shoulder Quality of pain is described as aching. Musculoskeletal: Circulation, motion, and sensation intact. Capillary refill < 3 seconds, in left fingers. Reports pain in anterior aspect of left shoulder. Injury Description: Bruise. Trauma Activation: Not Applicable Physician: ED Physician; Name: ; Notified At: ; Arrived At: Physician: General Surgeon; Name: ; Notified At: ; Arrived At: Physician: Radiology; Name: ; Notified At: ; Arrived At: Physician: Respiratory; Name: ; Notified At: ; Arrived At: Physician: Lab; Name: ; Notified At: ; Arrived At: Historical: - Allergies: 11:14 Codeine; ll1 - PMHx: 11:14 High Cholsterol; Hypertension; Hypothyroidism; ll1 - Immunization history:: Adult Immunizations up to date. - Infectious Disease History:: Denies. - Immunization history: Last tetanus immunization: - up to date. - Social history:: Smoking status: Patient denies any tobacco usage or history of. Screenin:34 [facility] ED Fall Risk Assessment (Adult) History of falling in the last 3 months, dd2 including since admission Yes- single mechanical fall (1 pt) Confusion or Disorientation No (0 pts) Intoxicated or Sedated No (0 pts) Impaired Gait Yes (1 pt) Mobility Assist Device Used Yes (1 pt) Altered Elimination No (0 pt) Score/Fall Risk Level 3 or more points = High Risk Oriented to surroundings, Maintained a safe environment, Educated pt \T\ family on fall prevention, incl call for assistance when getting out of bed, Assessed \T\ reinforced patient's understanding of fall precautions, Hourly rounding (assess needs \T\ fall precautionary measures) done, Used ambulatory aids as needed (educated on \T\ assisted with). Abuse screen: Denies threats or abuse. Denies injuries from another. Nutritional screening: No deficits noted. Tuberculosis screening: No symptoms or risk factors identified. Primary Survey: 13:42 NO uncontrolled hemorrhage observed. A: The client is awake and alert. The airway is ll1 patent. Breathing/Chest: Spontaneous respiratory effort, equal unlabored respirations, breath sounds clear bilaterally, regular pattern, symmetrical chest rise and fall. Circulation: No external hemorrhage present. Regular and strong central pulse, skin warm/dry/normal color. Disability Client is alert. Exposure/Environment: Obvious injury(ies) are noted at this time: L shoulder. 13:42 Reassessment Alertness and Airway: Awake and alert. The airway is patent. Breathing: ll1 Spontaneous respiratory effort, equal unlabored respirations, breath sounds clear bilaterally, regular pattern with symmetrical chest rise and fall. Circulation: No external hemorrhage noted. Regular and strong central pulse, skin warm/dry/normal color. Disability: Alert. Assessment: 13:34 Neuro: No deficits noted. Cardiovascular: No deficits noted. Respiratory: No deficits dd2 noted. GI: No deficits noted. No signs and/or symptoms were reported involving the gastrointestinal system. : No deficits noted. No signs and/or symptoms were reported regarding the genitourinary system. EENT: No deficits noted. No signs and/or symptoms were reported regarding the EENT system. Derm: No deficits noted. No signs and/or symptoms reported regarding the dermatologic system. Musculoskeletal: Circulation, motion, and sensation intact. Range of motion: limited in LT SHOULDER. 13:37 Pain: Complains of pain in anterior aspect of left shoulder. dd2 Vital Signs: 11:12 BP 165 / 66; Pulse 62; Resp 16; Temp 97.6; Pulse Ox 96% ; Weight 52.62 kg; Height 5 ft. ll1 1 in. ; 13:47 BP 158 / 79; Pulse 70; Resp 16; Pulse Ox 96% ; ll1 11:12 Body Mass Index 21.92 (52.62 kg, 154.94 cm) ll1 [place] Coma Score: 13:40 Eye Response: spontaneous(4). Motor Response: obeys commands(6). Verbal Response: ll1 oriented(5). Total: 15. Trauma Score (Adult): 13:40 Eye Response: spontaneous(1); Verbal Response: oriented(1); Motor Response: obeys ll1 commands(2); Systolic BP: > 89 mm Hg(4); Respiratory Rate: 10 to 29 per min(4); [place] Score: 15; Trauma Score: 12 ED Course: 10:57 Patient arrived in ED. al6 11:05 Salome Dash FNP-C is [facility]. kb 11:05 Larry Harmon MD is Attending Physician. kb 11:14 Triage completed. ll1 11:14 Arm band placed on. ll1 12:19 Patient placed in an exam room, on a stretcher. ll1 12:54 Humerus Left XRAY In Process Unspecified. EDMS 13:34 Patient has correct armband on for positive identification. Provided Education on: D/C dd2 EDUCATION, CRUTCH EDUCATION. 13:34 No provider procedures requiring assistance completed. Patient did not have IV access dd2 during this emergency room visit. 13:42 Patient maintains SpO2 saturation greater than 95% on room air. ll1 13:48 Thermoregulation: n/a. ll1 Administered Medications: No medications were administered Medication: 13:34 VIS not applicable for this client. dd2 Intake: 13:40 PO: 0ml; Total: 0ml. ll1 Output: 13:40 Urine: 0ml; Total: 0ml. ll1 Outcome: 13:28 Discharge ordered by MD. brady 13:42 Patient left the ED. ll1 13:42 Discharged to home ambulatory, ll1 13:42 Condition: stable 13:42 Discharge instructions given to patient, family, Instructed on discharge instructions, follow up and referral plans. Demonstrated understanding of instructions, follow-up care, 13:48 Patient's length of stay was not longer than 2 hours. ll1 Signatures: Dispatcher [employer] EDMS Salome Dash, DENTAL BILLING SPECIALIST-C DENTAL BILLING SPECIALIST-Yanique Savage RN RN ll1 YOJANA HEREDIA RN RN dd2 Mis Morrison6 Corrections: (The following items were deleted from the chart) 13:38 13:34 General: Appears in no apparent distress. uncomfortable, Behavior is calm, dd2 cooperative, appropriate for age, dd2 13:38 13:34 Pain: Complains of pain in left foot dd2 dd2 13:38 13:34 Musculoskeletal: Circulation, motion, and sensation intact. Range of motion: dd2 limited in left ankle dd2 13:39 13:34 Orthoglass splint: Posterior short lleg splint applied on left leg. dd2 dd2
[2025-03-27 13:52] VITALS: BP 165/66; TEMP 97.6; O2SAT 96
== END 2025-03-27 13:42 | disposition home or self-care (01) ==
LOC: ER 10:51
DX: M25.512 Pain in left shoulder (principal); W01.0XXA Fall on same level from slipping, tripping and stumbling without subsequent striking against object, initial encounter
CPT/HCPCS: 99284